=== PATIENT | male | born 1995 | race Caucasian/White ===

== ENCOUNTER 2017-02-11 00:32 | Emergency (ER) | payer BC ==
[~2017-02-11] VITALS: Ht 177.8 cm; Wt 115.0 kg
[2017-02-11 00:38] VITALS: TEMP 36.8; Ht 177.8 cm; Wt 115.0 kg
[2017-02-11] MEDS ORDERED: ONDANSETRON INJ 2 MG/ML 2 ML VIAL IV STA (00:42)
[2017-02-11] MEDS ORDERED: MoRPHine SULFATE 10 MG/ML CARP/VIAL IV STA (00:42)
[2017-02-11 00:45] VITALS: O2SAT 96
--- NOTE | 2017-02-11 00:48 | EMERGENCY ROOM VISIT NOTE ---
History First contact with patient: 00:35 Chief Complaint: BACK PAIN Stated Complaint: BACK SPASMS History of Present Illness The patient is a 21 year old male who presents to the Emergency Room with complaints of upper back and chest pain. The patient states that he was getting frozen yogurt today. He felt pain and tightness in the upper back and then it began to radiate to the chest. He states the pain has become unbearable. He reports associated diaphoresis. He rates his discomfort a 10/ 10. He states he has had a recent cough. He denies any abdominal pain, vomiting. He denies any extremity swelling. The patient states he has a history of a "hole in the heart" as a child but states that has resolved. He denies any medical problems. Review of Systems A 10 system review of systems was completed with positives and pertinent negatives listed in the HPI. Past Medical/Surgical History none Social History Smoking Status: Never Smoker Occupation Status: [email or web address] Current/Historical Medications Scheduled PRN Oxycodone/Acetaminophen 5MG/325MG (Percocet 5MG/325MG), 1-2 TABS PO Q4 PRN for Pain Physical Exam Vital Signs Date Time Temp Pulse Resp B/P (MAP) Pulse Ox O2 Delivery O2 Flow Rate FiO2 02/11/17 04:03 62 20 121/67 99 Room Air 02/11/17 03:09 77 18 160/69 99 Room Air 02/11/17 02:48 71 18 98 Room Air 02/11/17 01:15 68 18 141/74 100 Room Air 02/11/17 00:46 72 02/11/17 00:45 96 Room Air 02/11/17 00:38 36.8 70 18 144/90 98 Room Air Physical Exam VITALS: Vitals are noted on the nurse's note and reviewed by myself. Vital signs stable. GENERAL: The patient appears to be uncomfortable and in pain. He is diaphoretic , in no acute distress, nondiaphoretic, well-developed well-nourished. SKIN: The skin was without rashes, erythema, edema, or bruising. There is no tenting of the skin. Capillary reflex less than 2 seconds. HEAD: Normocephalic atraumatic. EARS: The external ears are normal in appearance. EYES: Pupils equal round and reactive to light and accommodation. Conjunctivae without injection, sclerae without icterus. Extraocular movements intact. NOSE: Patent, turbinates without inflammation or discharge. MOUTH: Mucous membranes moist. Tonsils are not enlarged. Pharynx without erythema or exudate. Uvula midline. Airway patent. Tongue does not deviate. NECK: Supple without nuchal rigidity. No lymphadenopathy. No thyromegaly. Cervical spine is nontender. No JVD. HEART: Regular rate and rhythm without murmurs gallops or rubs. LUNGS: Clear to auscultation bilaterally without wheezes, rales or rhonchi. No retractions or accessory muscle use. ABDOMEN: Positive bowel sounds x 4. Soft, nontender, without masses or organomegaly. MUSCULOSKELETAL: No muscle atrophy, erythema, or edema noted. Full range of motion in all extremities.Strength 5/5 throughout. NEURO: Patient was alert and oriented to person place and time. No focal neurological deficits. Medical Decision & Procedures ER Provider Diagnostic Interpretation: CHEST ONE VIEW PORTABLE CLINICAL HISTORY: chest pain dyspnea COMPARISON STUDY: No previous studies for comparison. FINDINGS: The bones soft tissues and hemidiaphragms are normal. The cardiomediastinal silhouette is normal. The lungs are clear. The pulmonary vasculature is normal. IMPRESSION: Negative chest. Laboratory Results 02/11/17 01:02 Red Blood Count 4.76, Mean Corpuscular Volume 87.8, Mean Corpuscular Hemoglobin 32.1, Mean Corpuscular Hemoglobin Concent 36.6, Mean Platelet Volume 9.3, Neutrophils (%) (Auto) 82.0, Lymphocytes (%) (Auto) 8.9, Monocytes (%) (Auto) 8.0, Eosinophils (%) (Auto) 0.7, Basophils (%) (Auto) 0.1, Neutrophils # (Auto) 8.57, Lymphocytes # (Auto) 0.93, Monocytes # (Auto) 0.84, Eosinophils # (Auto) 0.07, Basophils # (Auto) 0.01 02/11/17 01:02 Test 02/11/17 01:02 White Blood Count 10.45 K/uL (4.8-10.8) Red Blood Count 4.76 M/uL (4.7-6.1) Hemoglobin 15.3 g/dL (14.0-18.0) Hematocrit 41.8 % (42-52) Mean Corpuscular Volume 87.8 fL (80-100) Mean Corpuscular Hemoglobin 32.1 pg (25-34) Mean Corpuscular Hemoglobin Concent 36.6 g/dl (32-36) Platelet Count 172 K/uL (130-400) Mean Platelet Volume 9.3 fL (7.4-10.4) Neutrophils (%) (Auto) 82.0 % Lymphocytes (%) (Auto) 8.9 % Monocytes (%) (Auto) 8.0 % Eosinophils (%) (Auto) 0.7 % Basophils (%) (Auto) 0.1 % Neutrophils # (Auto) 8.57 K/uL (1.4-6.5) Lymphocytes # (Auto) 0.93 K/uL (1.2-3.4) Monocytes # (Auto) 0.84 K/uL (0.11-0.59) Eosinophils # (Auto) 0.07 K/uL (0-0.5) Basophils # (Auto) 0.01 K/uL (0-0.2) RDW Standard Deviation 37.3 fL (36.4-46.3) RDW Coefficient of Variation 11.7 % (11.5-14.5) Immature Granulocyte % (Auto) 0.3 % Immature Granulocyte # (Auto) 0.03 K/uL (0.00-0.02) D-Dimer 230 ug/L FEU (0-500) Anion Gap 6.0 mmol/L (3-11) Est Creatinine Clear Calc Drug Dose 164.0 ml/min Estimated GFR () 139.3 Estimated GFR (Non- 120.2 BUN/Creatinine Ratio 26.5 (10-20) Calcium Level 8.8 mg/dl (8.5-10.1) Total Bilirubin 1.7 mg/dl (0.2-1) Aspartate Amino Transf (AST/SGOT) 44 U/L (15-37) Alanine Aminotransferase (ALT/SGPT) 47 U/L (12-78) Alkaline Phosphatase 75 U/L (45-117) Troponin I < 0.015 ng/ml (0-0.045) Total Protein 7.2 gm/dl (6.4-8.2) Albumin 4.0 gm/dl (3.4-5.0) Globulin 3.2 gm/dl (2.5-4.0) Albumin/Globulin Ratio 1.3 (0.9-2) Lipase 69 U/L (73-393) Medications Administered Medications (Trade) Dose Ordered Sig/Kelli Route Start Time Stop Time Status Last Admin Dose Admin Morphine Sulfate (MoRPHine SULFATE INJ) 6 mg NOW STAT IV 02/11/17 00:42 02/11/17 00:43 DC 02/11/17 01:11 6 MG Ondansetron HCl (Zofran Inj) 4 mg NOW STAT IV 02/11/17 00:42 02/11/17 00:44 DC 02/11/17 01:11 4 MG Oxycodone/ Acetaminophen (Percocet 5/ 325MG Home Pack) 1 homepack UD ONCE PO 02/11/17 04:00 02/11/17 04:01 DC 02/11/17 04:13 1 HOMEPACK Procedure The patient was monitored on a cardiac catheterization technologist. They maintained a normal sinus rhythm without ectopy. ECG Indication: back/shoulder pain Rate (beats per minute): 67 Rhythm: normal sinus Findings: nonspecific-ST abn Comparison ECG Date: no prior available ED Course The patient was seen and examined. Previous visits were reviewed. The patient does not have a fever or leukocytosis. He does not have any significant electrolyte abnormality. AST was minimally elevated at 44 and total bilirubin was minimally elevated at 1.7. Lipase was not elevated. Troponin was not elevated. D-dimer was not elevated. An initial EKG revealed diffuse ST elevation which was likely early repolarization. It was repeated a few minutes later and was found to have normal sinus rhythm with a rate of 67 bpm. The patient was given 4 mg IV Zofran and 6 mg IV morphine with resolution of his pain The patient presents to the emergency department with upper back pain. The patient's pain was reproducible with palpation and movement. I suspect this is musculoskeletal in etiology. He did lift weights recently and has had pain in the neck and low back in the past. The patient will be given a prescription for Percocet. He should contact his family doctor on Monday for a follow-up appointment. He should return with any worsening symptoms. The case and EKGs were reviewed with Dr. Fink who agrees with the assessment and treatment plan Medical Decision DIFFERENTIAL DIAGNOSIS: Aortic dissection, myocarditis, pericarditis, cervical disc disease, costochondritis, herpes zoster, rib fracture, pleuritis, pneumonia , pulmonary embolus, tension pneumothorax, anxiety disorder, somatoform disorder , choledocholithiasis, status, esophagitis, esophageal spasm, esophageal reflux , esophageal rupture, pancreatitis, peptic ulcer disease, cardiac ischemia, ST elevation [place], acute coronary syndrome, arrhythmia, coronary artery vasospasm. vavular heart disease, coronary artery disease, among others. Medication Reconcilliation Current Medication List: was personally reviewed by me Blood Pressure Screening Patient's blood pressure: Normal blood pressure Blood pressure disposition: Did not require urgent referral Impression Primary Impression: Upper back pain Additional Impression: Precordial chest pain Departure Information Dispostion Home / Self-Care Condition GOOD Prescriptions Oxycodone/Acetaminophen 5MG/325MG (PERCOCET 5MG/325MG) Tab 1-2 TABS PO Q4 Y for Pain, #36 TAB For Initial Treatment Prov: Zuleyka Musa PA-C 02/11/17 Referrals No Doctor, Assigned (PCP) Patient Instructions Back Pain - [facility], [facility] Additional Instructions Motrin 600 mg every 6-8 hours or moderate pain Percocet 1-2 tablet every 4-6 hours as needed for worse pain. No driving or alcohol use with Percocet and do not take with Tylenol. Contact your family doctor for a follow-up appointment next week Return with any worsening symptoms Problem Qualifiers
[2017-02-11 01:21] LABS: BASO % 0.1 %; BASO ABS # 0.01 K/uL (0-0.2); COMPLETE YES; EOS % 0.7 %; HEMATOCRIT 41.8 % (42-52); IG% 0.3 %; LYMPH % 8.9 %; LYMPH ABS # 0.93 K/uL (1.2-3.4); MEAN CELL VOLUME 87.8 fL (80-100); MEAN CORPUSCULAR HEMOGLOBIN 32.1 pg (25-34); MEAN CORPUSCULAR HGB CONC 36.6 g/dl (32-36); MEAN PLATELET VOLUME 9.3 fL (7.4-10.4); PLATELET COUNT 172 K/uL (130-400); RED BLOOD COUNT 4.76 M/uL (4.7-6.1); WHITE BLOOD COUNT 10.45 K/uL (4.8-10.8)
[2017-02-11 01:43] LABS: ALT/SGPT 47 U/L (12-78); AST/SGOT 44 U/L (15-37); BLOOD UREA NITROGEN 24 mg/dl (7-18); BUN/CREATININE RATIO 26.5 (10-20); CALCIUM 8.8 mg/dl (8.5-10.1); CARBON DIOXIDE 30 mmol/L (21-32); CHLORIDE 101 mmol/L (98-107); CREATININE 0.92 mg/dl (0.60-1.40); GLUCOSE 129 mg/dl (70-99); POTASSIUM 3.8 mmol/L (3.5-5.1); SODIUM 137 mmol/L (136-145)
[2017-02-11 03:00] LABS: ALB/GLOB RATIO 1.3 (0.9-2); ALKALINE PHOSPHATASE 75 U/L (45-117)
[2017-02-11] MEDS ORDERED: OXYC-57 PO (03:53)
[2017-02-11] MEDS ORDERED: PERCOCET HOME PACK PO ONE (04:00)
[2017-02-11 04:03] VITALS: BP 121/67; PULSE 62; O2SAT 99
--- NOTE | 2017-02-11 06:15 | DIAGNOSTIC IMAGING REPORT ---
CHEST ONE VIEW PORTABLE CLINICAL HISTORY: chest pain dyspnea COMPARISON STUDY: No previous studies for comparison. FINDINGS: The bones soft tissues and hemidiaphragms are normal. The cardiomediastinal silhouette is normal. The lungs are clear. The pulmonary vasculature is normal. IMPRESSION: Negative chest. The above report was generated using voice recognition software. It may contain grammatical, syntax or spelling errors. Electronically signed by: Gama Aguilera M.D. 02/11/2017 6:14 AM Dictated Date/Time: 02/11/2017 6:13 AM
== END 2017-02-11 04:23 | disposition home or self-care (01) ==
LOC: EDBD 00:32 → C.EDB 00:34
DX: M54.9 Dorsalgia, unspecified (principal); R07.2 Precordial pain